=== PATIENT | male | born 1990 | race African-American/Black ===

== ENCOUNTER 2017-09-07 09:59 | Emergency (ER) | payer OTHER ==
[~2017-09-07] VITALS: Ht 175.3 cm; Wt 86.0 kg
[2017-09-07 10:00] VITALS: BP 137/82; PULSE 101; RESP 20; TEMP 98.1; O2SAT 99
[2017-09-07] MEDS ORDERED: ORPHENADRINE INJ 60 MG/2 ML AMP IM ONE (11:15)
[2017-09-07] MEDS ORDERED: KETOROLAC TROMETHAMINE 60 MG/2 ML (IM) VIAL IM ONE (11:15)
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
[2017-09-07] MEDS ORDERED: IBUP1TAB7 PO (12:23)
== END 2017-09-07 12:50 | disposition home or self-care (01) ==
LOC: NEPK 09:59
DX: S16.1XXA Strain of muscle, fascia and tendon at neck level, initial encounter (principal); S80.02XA Contusion of left knee, initial encounter; V89.2XXA Person injured in unspecified motor-vehicle accident, traffic, initial encounter
CPT/HCPCS: 73564; 96372; 99284; J1885; J2360; L0150

== ENCOUNTER 2017-10-16 09:21 | Emergency (ER) | payer SELFPAY ==
[~2017-10-16] VITALS: Ht 175.3 cm; Wt 85.0 kg
[~2017-10-16 09:21] MED LIST: IBUP1TAB7 PO
[2017-10-16 09:32] VITALS: RESP 16; TEMP 96.7; O2SAT 100
[2017-10-16] MEDS ORDERED: SODIUM CHLOR 0.9% 1000 ML INJ 1,000 ML IV ONE ×2 (09:38→10:08)
[2017-10-16] MEDS ORDERED: SODIUM CHLORIDE 0.9% FLUSH 10 ML FLUSH IVF PRN (09:45)
--- NOTE | 2017-10-16 10:04 | RADRPT ---
EXAM DATE/TIME: 10/16/2017 09:48 [facility] COMPARISON: No previous studies available for comparison. INDICATIONS : Vomiting. MEDICAL HISTORY : None. SURGICAL HISTORY : None. ENCOUNTER: Initial ACUITY: 1 day PAIN SCORE: 0/10 LOCATION: Bilateral chest FINDINGS: A single view of the chest demonstrates the lungs to be symmetrically aerated without evidence of mas s, infiltrate or effusion. The cardiomediastinal contours are unremarkable. Osseous structures are intact. There is no evidence of free air or. CONCLUSION: No acute disease. No evidence of free air. Ned Brewer MD on October 16, 2017 at 10:02 Board Certified Radiologist. This report was verified electronically.
[2017-10-16] MEDS ORDERED: ONDANSETRON HCL 4 MG/2 ML VIAL IVP ONE (10:15)
--- NOTE | 2017-10-16 10:17 | PD ---
HPI Chief Complaint: Diabetic Time Seen by Provider: 09:37 Travel History International Travel<30 days: No Contact w/Intl Traveler<30days: No Traveled to known affect area: No History of Present Illness HPI Patient woke up today with nausea vomiting and diarrhea along with abdominal crampy pain, usually only with a diarrhea movement. Patient has no other sick contacts that he knows of. Worsened by any eating or drinking. No alleviating factors. Denies any associated factors such as fever, headache, chest pain, back pain, flank pain, rash. Allergy to cefaclor Past medical history significant for diabetes type 2, cannabis use, eyeglasses PFSH Past Medical History Diabetes: Yes Patient Takes Glucophage: No Diminished Hearing: No Integumentary: Yes (ABSCESS L BUTTOCK I&D) Tetanus Vaccination: < 5 Years Influenza Vaccination: No Social History Alcohol Use: No Tobacco Use: No Substance Use: Yes (cannabis) Allergies-Medications (Allergen,Severity, Reaction): Coded Allergies: cefaclor (Verified Allergy, Unknown, UNKNOWN , 10/16/17) Reported Meds & Prescriptions Reported Meds & Active Scripts Active No Active Prescriptions or Reported Medications Review of Systems General / Constitutional: No: Fever Eyes: No: Visual changes HENT: No: Headaches Cardiovascular: No: Chest Pain or Discomfort Respiratory: No: Shortness of Breath Gastrointestinal: Positive: Nausea, Vomiting, Diarrhea Genitourinary: No: Dysuria Musculoskeletal: No: Pain Skin: No Rash Neurologic: No: Weakness Psychiatric: No: Depression Endocrine: No: Polydipsia Hematologic/Lymphatic: No: Easy Bruising Physical Exam Narrative GENERAL: SKIN: Warm and dry. HEAD: Atraumatic. Normocephalic. EYES: Pupils equal and round. No scleral icterus. No injection or drainage. ENT: No nasal bleeding or discharge. Mucous membranes pink and moist. NECK: Trachea midline. No JVD. CARDIOVASCULAR: Regular rate and rhythm. RESPIRATORY: No accessory muscle use. Clear to auscultation. Breath sounds equal bilaterally. GASTROINTESTINAL: Abdomen soft, non-tender, nondistended. MUSCULOSKELETAL: Extremities without clubbing, cyanosis, or edema. No obvious deformities. NEUROLOGICAL: Awake and alert. No obvious cranial nerve deficits. Motor grossly within normal limits. Five out of 5 muscle strength in the arms and legs. Normal speech. PSYCHIATRIC: Appropriate mood and affect; insight and judgment normal. Data Data Last Documented VS Vital Signs Date Time Temp Pulse Resp B/P (MAP) Pulse Ox O2 Delivery O2 Flow Rate FiO2 10/16/17 10:40 16 10/16/17 09:55 Room Air 10/16/17 09:32 96.7 100 Orders Orders Electrocardiogram (10/16/17 09:38) Complete Blood Count With Diff (10/16/17 09:38) Comprehensive Metabolic Panel (10/16/17 09:38) Beta Hydroxybutyrate (Acetone) (10/16/17 09:38) Osmolality,Serum (10/16/17 09:38) Lactic Acid (10/16/17 09:38) Urinalysis - C+S If Indicated (10/16/17 09:38) Chest, Single Ap (10/16/17 09:38) Arterial Blood Gas (Abg) (10/16/17 09:38) Blood Glucose (10/16/17 09:38) Blood Glucose (10/16/17 10:08) Ecg Monitoring (10/16/17 09:38) Iv Access Insert/Monitor (10/16/17 09:38) Oximetry (10/16/17 09:38) NPO (10/16/17 09:38) Sodium Chlor 0.9% 1000 Ml Inj (Ns 1000 M (10/16/17 09:38) Sodium Chlor 0.9% 1000 Ml Inj (Ns 1000 M (10/16/17 10:08) Sodium Chloride 0.9% Flush (Ns Flush) (10/16/17 09:45) Troponin I (10/16/17 09:38) Lipase (10/16/17 09:38) Ondansetron Inj (Zofran Inj) (10/16/17 10:15) Morphine Inj (Morphine Inj) (10/16/17 10:30) Labs Laboratory Tests Test 10/16/17 09:35 10/16/17 09:55 10/16/17 12:05 White Blood Count 9.9 TH/MM3 Red Blood Count 5.28 MIL/MM3 Hemoglobin 14.7 GM/DL Hematocrit 43.9 % Mean Corpuscular Volume 83.3 FL Mean Corpuscular Hemoglobin 27.8 PG Mean Corpuscular Hemoglobin Concent 33.4 % Red Cell Distribution Width 15.4 % Platelet Count 410 TH/MM3 Mean Platelet Volume 7.4 FL Neutrophils (%) (Auto) 80.3 % Lymphocytes (%) (Auto) 15.8 % Monocytes (%) (Auto) 2.8 % Eosinophils (%) (Auto) 0.4 % Basophils (%) (Auto) 0.7 % Neutrophils # (Auto) 7.9 TH/MM3 Lymphocytes # (Auto) 1.6 TH/MM3 Monocytes # (Auto) 0.3 TH/MM3 Eosinophils # (Auto) 0.0 TH/MM3 Basophils # (Auto) 0.1 TH/MM3 CBC Comment DIFF FINAL Differential Comment Blood Urea Nitrogen 6 MG/DL Creatinine 0.88 MG/DL Random Glucose 327 MG/DL Total Protein 8.6 GM/DL Albumin 4.0 GM/DL Calcium Level 9.2 MG/DL Alkaline Phosphatase 87 U/L Aspartate Amino Transf (AST/SGOT) 17 U/L Alanine Aminotransferase (ALT/SGPT) 23 U/L Total Bilirubin 0.4 MG/DL Sodium Level 137 MEQ/L Potassium Level 4.5 MEQ/L Chloride Level 102 MEQ/L Carbon Dioxide Level 25.8 MEQ/L Anion Gap 9 MEQ/L Estimat Glomerular Filtration Rate 129 ML/MIN Serum Osmolality 302 MOSM/KG Lactic Acid Level 2.7 mmol/L Troponin I LESS THAN 0.02 NG/ML Lipase 76 U/L B-Hydroxybutyrate 0.50 MMOL/L Blood Gas Puncture Site RT RADIAL Blood Gas Patient Temperature 98.6 Blood Gas HCO3 24 mmol/L Blood Gas Base Excess -0.4 mmol/L Blood Gas Oxygen Saturation 94 % Arterial Blood pH 7.36 Arterial Blood Partial Pressure CO2 44 mmHg Arterial Blood Partial Pressure O2 87 mmHG Arterial Blood Oxygen Content 18.8 Vol % Arterial Blood Carboxyhemoglobin 1.8 % Arterial Blood Methemoglobin 0.7 % Blood Gas Hemoglobin 14.1 G/DL Oxygen Delivery Device ROOM AIR Blood Gas Inspired Oxygen 21 % Urine Color YELLOW Urine Turbidity CLEAR Urine pH 5.5 Urine Specific [place] 1.041 Urine Protein NEG mg/dL Urine Glucose (UA) 1000 mg/dL Urine Ketones 40 mg/dL Urine Occult Blood NEG Urine Nitrite NEG Urine Bilirubin NEG Urine Urobilinogen LESS THAN 2.0 MG/DL Urine Leukocyte Esterase NEG Urine RBC LESS THAN 1 /hpf Urine WBC 1 /hpf Microscopic Urinalysis Comment CULT NOT INDICATED MDM Medical Decision Making Medical Screen Exam Complete: Yes Emergency Medical Condition: Yes Medical Record Reviewed: Yes Differential Diagnosis Viral gastroenteritis versus bacterial gastroenteritis versus DKA versus electrolyte imbalance versus pancreatitis Narrative Course CBC shows no leukocytosis, no anemia, normal platelet count, and no left shift. ABG shows normal pH normal PCO2 normal PaO2 no abnormal findings done on room air Currently cardiac enzymes are negative, lactic acid is 2.7, liver functions are within normal limits Mild elevation of beta hydroxybutyrate, hyperglycemia of 302, but without any acidosis or anion gap Chest x-ray read as no acute disease no evidence of free air by radiologist UA has glucosuria but without any evidence of UTI Diagnosis Primary Impression: Gastroenteritis Additional Impression: Hyperglycemia secondary to diabetes Patient Instructions: Gastroenteritis (ED), General Instructions Scripts Tramadol (Ultram) 50 Mg Tab 50 MG PO Q8H Y for PAIN, #14 TAB 0 Refills Prov: González Gambino MD 10/16/17 Ondansetron Odt (Zofran Odt) 4 Mg Tab 4 MG SL Q8HR Y for Nausea/Vomiting, #21 TAB 0 Refills Prov: González Gambino MD 10/16/17 Disposition: 01 DISCHARGE HOME Condition: Stable González Gambino MD Oct 16, 2017 10:17
[2017-10-16 10:18] LABS: AUTOMATED NEUTROPHIL # 7.9 TH/MM3 (1.8-7.7); BASOPHIL # 0.1 TH/MM3 (0-0.2); BASOPHIL % 0.7 % (0.0-2.0); EOSINOPHIL % 0.4 % (0.0-4.0); HEMATOCRIT 43.9 % (39.0-51.0); HEMOGLOBIN 14.7 GM/DL (13.0-17.0); LYMPH % 15.8 % (9.0-44.0); LYMPHOCYTE # 1.6 TH/MM3 (1.0-4.8); MEAN CELL VOLUME 83.3 FL (80.0-100.0); MEAN CORPUSCULAR HEMOGLOBIN 27.8 PG (27.0-34.0); MEAN CORPUSCULAR HGB CONC 33.4 % (32.0-36.0); MEAN PLATELET VOLUME 7.4 FL (7.0-11.0); MONO % 2.8 % (0.0-8.0); MONOCYTE # 0.3 TH/MM3 (0-0.9); NEUT % 80.3 % (16.0-70.0); PLATELET COUNT 410 TH/MM3 (150-450); RED BLOOD COUNT 5.28 MIL/MM3 (4.50-5.90); RED CELL DISTRIBUTION WIDTH 15.4 % (11.6-17.2); WHITE BLOOD COUNT 9.9 TH/MM3 (4.0-11.0)
[2017-10-16] MEDS ORDERED: MORPHINE SULFATE 4 MG/ML INJ IV PUSH ONE (10:30)
[2017-10-16 10:40] VITALS: RESP 16
[2017-10-16 10:48] LABS: ALT (GPT) 23 U/L (12-78)
[2017-10-16 10:51] LABS: ALKALINE PHOSPHATASE 87 U/L (45-117); TOTAL BILIRUBIN ADULT 0.4 MG/DL (0.2-1.0); TOTAL PROTEIN 8.6 GM/DL (6.4-8.2); TROPONIN I LESS THAN 0.02 NG/ML (0.02-0.05)
[2017-10-16 11:04] LABS: AST (GOT) 17 U/L (15-37); BICARBONATE 25.8 MEQ/L (21.0-32.0); BLOOD UREA NITROGEN 6 MG/DL (7-18); CALCIUM 9.2 MG/DL (8.5-10.1); CHLORIDE 102 MEQ/L (98-107); CREATININE 0.88 MG/DL (0.60-1.30); GLOMERULAR FILTRATION RATE 129 ML/MIN (>89); GLUCOSE,RANDOM 327 MG/DL (74-106); SODIUM (NA) 137 MEQ/L (136-145)
[2017-10-16 12:20] LABS: BILIRUBIN, URINE NEG (NEG); BLOOD, URINE NEG (NEG); GLUCOSE,URINE 1000 mg/dL (NEG); KETONE, URINE 40 mg/dL (NEG); NITRITE,URINE NEG (NEG); PH, URINE 5.5 (5.0-8.5); URINE COLOR YELLOW (YELLW/STRAW); URINE LEUKOCYTE ESTERASE NEG (NEG)
[2017-10-16] MEDS ORDERED: TRAM50 PO (12:41)
[2017-10-16] MEDS ORDERED: ZOFR4TAB3 SL (12:41)
[2017-10-16 13:29] VITALS: BP 125/85
[2017-10-16] MEDS ORDERED: ONDANSETRON HCL 4 MG/2 ML VIAL IV PUSH ONE (13:45)
--- NOTE | 2017-10-16 13:56 | EKG ---
Date Performed: 10/16/2017 Time Performed: 10:04:55 PTAGE: 26 years EKG: Sinus rhythm POSSIBLE RIGHT VENTRICULAR CONDUCTION DELAY NONSPECIFIC T-WAVE ABNORMALITY BORDERLINE ECG NO PREVIOUS TRACING DOCTOR: Boogie Yee Interpretating Date/Time 10/16/2017 13:53:41
== END 2017-10-16 14:00 | disposition home or self-care (01) ==
LOC: NEPE 09:21
DX: K52.9 Noninfective gastroenteritis and colitis, unspecified (principal); E11.65 Type 2 diabetes mellitus with hyperglycemia; F12.90 Cannabis use, unspecified, uncomplicated
CPT/HCPCS: 36600; 71045; 80053; 81001; 82010; 82805; 83605; 83690; 83930; 84484; 85025; 93005; 96361; 96374; 96375; 96376; 99285; J2270; J2405; J7030

== ENCOUNTER 2017-10-18 08:45 | Emergency (ER) | payer SELFPAY ==
[~2017-10-18] VITALS: Ht 175.3 cm; Wt 90.0 kg
[~2017-10-18 08:45] MED LIST changes: -IBUP1TAB7 PO; +TRAM50 PO; +ZOFR4TAB3 SL
[2017-10-18 08:49] VITALS: BP 141/88; PULSE 86; RESP 16; TEMP 98.1; O2SAT 100
[2017-10-18] MEDS ORDERED: SODIUM CHLOR 0.9% 1000 ML INJ 1,000 ML IV ONE ×2 (09:15→12:15)
--- NOTE | 2017-10-18 10:07 | PD ---
HPI Chief Complaint: General Weakness Time Seen by Provider: 09:03 Travel History International Travel<30 days: No Contact w/Intl Traveler<30days: No Traveled to known affect area: No History of Present Illness HPI Patient is a 26 year old male who comes in feeling fatigued. He was here a couple of days ago with nausea/vomiting/diarrhea, but says this has improved. Now he says he feels weak all over and has pain in his joints. He denies fever or chills. He says he had some discomfort in his LLQ, but this improved with a bowel movement. He denies chest pain or SOB. He is a diabetic, but was trying to manage it with diet. Severity is mild to moderate. PFSH Past Medical History Medical History: Denies Significant Hx Diabetes: Yes Patient Takes Glucophage: No Diminished Hearing: No Integumentary: Yes (ABSCESS L BUTTOCK I&D) Tetanus Vaccination: Unknown Influenza Vaccination: No Past Surgical History Surgical History: No Previous Surgery Social History Alcohol Use: No Tobacco Use: No Substance Use: Yes (cannabis) Allergies-Medications (Allergen,Severity, Reaction): Coded Allergies: cefaclor (Verified Allergy, Unknown, UNKNOWN , 10/18/17) Reported Meds & Prescriptions Reported Meds & Active Scripts Active Ultram (Tramadol HCl) 50 Mg Tab 50 Mg PO Q8H PRN Zofran Odt (Ondansetron Odt) 4 Mg Tab 4 Mg SL Q8HR PRN Review of Systems Except as stated in HPI: all other systems reviewed are Neg General / Constitutional: No: Fever, Chills HENT: No: Headaches, Lightheadedness Cardiovascular: No: Chest Pain or Discomfort Respiratory: No: Shortness of Breath Gastrointestinal: No: Vomiting, Abdominal Pain Genitourinary: No: Dysuria Musculoskeletal: Positive: Arthralgias Neurologic: Positive: Weakness Physical Exam Narrative GENERAL: Awake and alert, in no acute distress. SKIN: Focused skin assessment warm/dry. HEAD: Atraumatic. Normocephalic. EYES: Pupils equal and round. No scleral icterus. EOMI ENT: Mucous membranes pink and moist. NECK: Trachea midline. No JVD. CARDIOVASCULAR: Regular rate and rhythm. No murmur appreciated. RESPIRATORY: No accessory muscle use. Clear to auscultation. Breath sounds equal bilaterally. GASTROINTESTINAL: Abdomen soft, non-tender, nondistended. MUSCULOSKELETAL: No obvious deformities. No clubbing. No cyanosis. No edema. NEUROLOGICAL: Awake and alert. No obvious cranial nerve deficits. Motor grossly within normal limits. Normal speech. PSYCHIATRIC: Appropriate mood and affect; insight and judgment normal. Data Data Last Documented VS Vital Signs Date Time Temp Pulse Resp B/P (MAP) Pulse Ox O2 Delivery O2 Flow Rate FiO2 10/18/17 12:49 65 18 138/80 (99) 99 10/18/17 08:49 98.1 Orders Orders Iv Access Insert/Monitor (10/18/17 09:08) Complete Blood Count With Diff (10/18/17 09:08) Basic Metabolic Panel (Bmp) (10/18/17 09:08) Hepatic Functional Panel (10/18/17 09:08) Urinalysis - C+S If Indicated (10/18/17 09:08) Beta Hydroxybutyrate (Acetone) (10/18/17 09:08) Sodium Chlor 0.9% 1000 Ml Inj (Ns 1000 M (10/18/17 09:15) Electrocardiogram (10/18/17 ) Sodium Chlor 0.9% 1000 Ml Inj (Ns 1000 M (10/18/17 12:15) Ketorolac Inj (Toradol Inj) (10/18/17 12:15) Creatine Kinase (Cpk) (10/18/17 12:13) Ondansetron Inj (Zofran Inj) (10/18/17 12:30) Ed Discharge Order (10/18/17 13:24) Labs Laboratory Tests Test 10/18/17 09:30 10/18/17 09:37 10/18/17 10:45 White Blood Count 7.0 TH/MM3 Red Blood Count 5.13 MIL/MM3 Hemoglobin 14.3 GM/DL Hematocrit 42.0 % Mean Corpuscular Volume 81.9 FL Mean Corpuscular Hemoglobin 27.8 PG Mean Corpuscular Hemoglobin Concent 34.0 % Red Cell Distribution Width 15.5 % Platelet Count 409 TH/MM3 Mean Platelet Volume 8.0 FL Neutrophils (%) (Auto) 81.0 % Lymphocytes (%) (Auto) 15.4 % Monocytes (%) (Auto) 2.8 % Eosinophils (%) (Auto) 0.2 % Basophils (%) (Auto) 0.6 % Neutrophils # (Auto) 5.7 TH/MM3 Lymphocytes # (Auto) 1.1 TH/MM3 Monocytes # (Auto) 0.2 TH/MM3 Eosinophils # (Auto) 0.0 TH/MM3 Basophils # (Auto) 0.0 TH/MM3 CBC Comment DIFF FINAL Differential Comment Urine Color YELLOW Urine Turbidity CLEAR Urine pH 5.5 Urine Specific [place] 1.030 Urine Protein NEG mg/dL Urine Glucose (UA) 1000 mg/dL Urine Ketones 40 mg/dL Urine Occult Blood NEG Urine Nitrite NEG Urine Bilirubin NEG Urine Urobilinogen LESS THAN 2.0 MG/DL Urine Leukocyte Esterase NEG Urine WBC LESS THAN 1 /hpf Microscopic Urinalysis Comment CULT NOT INDICATED Blood Urea Nitrogen 5 MG/DL Creatinine 0.73 MG/DL Random Glucose 232 MG/DL Total Protein 8.2 GM/DL Albumin 3.8 GM/DL Calcium Level 8.9 MG/DL Alkaline Phosphatase 71 U/L Aspartate Amino Transf (AST/SGOT) 13 U/L Alanine Aminotransferase (ALT/SGPT) 20 U/L Total Bilirubin 0.6 MG/DL Direct Bilirubin 0.1 MG/DL Sodium Level 139 MEQ/L Potassium Level 3.7 MEQ/L Chloride Level 106 MEQ/L Carbon Dioxide Level 25.5 MEQ/L Anion Gap 8 MEQ/L Estimat Glomerular Filtration Rate 160 ML/MIN Indirect Bilirubin 0.5 MG/DL Total Creatine Kinase 90 U/L B-Hydroxybutyrate 1.20 MMOL/L [facility] Medical Decision Making Medical Screen Exam Complete: Yes Emergency Medical Condition: Yes Medical Record Reviewed: Yes Interpretation(s) ECG shows NSR at 65, no ST elevation or depression, normal intervals Differential Diagnosis Viral infection versus hyperglycemia versus dehydration versus electrolyte abnormality Narrative Course Patient is a 26-year-old male comes in complaining of generalized weakness and joint pain. Exam shows no acute abnormalities. IV established, labs sent. Labs show a glucose of 232. Anion gap is 8. Electrolytes are within normal limits. Patient given IV fluids, Toradol, Zofran. He reports feeling better. Patient does say that he recently cut out meat from his diet and is only eating fruits and vegetables. I explained he needs to add protein in his diet. Advised to drink plenty of water and follow-up with a primary care doctor for management of his diabetes. Advised return to the ED as needed for any worsening symptoms. Diagnosis Primary Impression: Generalized weakness Referrals: [facility] call for appointment Patient Instructions: General Instructions, Weakness (ED) Additional Instructions: Drink plenty of water. Follow-up with a primary care doctor. Return to the ED as needed for any worsening symptoms. Disposition: 01 DISCHARGE HOME Condition: Stable Meka Magaña MD Oct 18, 2017 10:07
[2017-10-18 10:10] LABS: BILIRUBIN, URINE NEG (NEG); BLOOD, URINE NEG (NEG); GLUCOSE,URINE 1000 mg/dL (NEG); KETONE, URINE 40 mg/dL (NEG); NITRITE,URINE NEG (NEG); PH, URINE 5.5 (5.0-8.5); URINE COLOR YELLOW (YELLW/STRAW); URINE LEUKOCYTE ESTERASE NEG (NEG)
[2017-10-18 10:21] LABS: AUTOMATED NEUTROPHIL # 5.7 TH/MM3 (1.8-7.7); BASOPHIL % 0.6 % (0.0-2.0); EOSINOPHIL % 0.2 % (0.0-4.0); HEMOGLOBIN 14.3 GM/DL (13.0-17.0); LYMPH % 15.4 % (9.0-44.0); LYMPHOCYTE # 1.1 TH/MM3 (1.0-4.8); MEAN CELL VOLUME 81.9 FL (80.0-100.0); MEAN CORPUSCULAR HEMOGLOBIN 27.8 PG (27.0-34.0); MONO % 2.8 % (0.0-8.0); MONOCYTE # 0.2 TH/MM3 (0-0.9); PLATELET COUNT 409 TH/MM3 (150-450); RED BLOOD COUNT 5.13 MIL/MM3 (4.50-5.90); RED CELL DISTRIBUTION WIDTH 15.5 % (11.6-17.2)
[2017-10-18 12:02] LABS: ALBUMIN 3.8 GM/DL (3.4-5.0); BICARBONATE 25.5 MEQ/L (21.0-32.0); CALCIUM 8.9 MG/DL (8.5-10.1); CREATININE 0.73 MG/DL (0.60-1.30); DIRECT BILIRUBIN ADULT 0.1 MG/DL (0.0-0.2); INDIRECT BILIRUBIN 0.5 MG/DL (0.0-0.8); TOTAL BILIRUBIN ADULT 0.6 MG/DL (0.2-1.0); TOTAL PROTEIN 8.2 GM/DL (6.4-8.2)
[2017-10-18] MEDS ORDERED: KETOROLAC TROMETHAMINE 30 MG/ML (IVP) VIAL IV PUSH ONE (12:15)
[2017-10-18] MEDS ORDERED: ONDANSETRON HCL 4 MG/2 ML VIAL IV PUSH ONE (12:30)
[2017-10-18 12:49] VITALS: BP 138/80; PULSE 65; RESP 18; O2SAT 99
[2017-10-18 14:43] VITALS: BP 153/84
--- NOTE | 2017-10-19 16:37 | EKG ---
Date Performed: 10/18/2017 Time Performed: 09:41:32 PTAGE: 26 years EKG: Sinus rhythm NONSPECIFIC T-WAVE ABNORMALITY Since previous tracing, no significant change noted BORDERLINE ECG PREVIOUS TRACING : 10/16/2017 10.04 DOCTOR: Everette Kaba Interpretating Date/Time 10/19/2017 16:36:25
== END 2017-10-18 14:56 | disposition home or self-care (01) ==
LOC: NEPD 08:45
DX: R53.1 Weakness (principal); F12.90 Cannabis use, unspecified, uncomplicated
CPT/HCPCS: 80048; 80076; 81001; 82010; 82550; 85025; 93005; 96361; 96374; 99284; J1885; J2405; J7030

== ENCOUNTER 2017-10-22 07:32 | Emergency (ER) | payer SELFPAY ==
[~2017-10-22] VITALS: Ht 175.3 cm; Wt 90.0 kg
[2017-10-22 07:36] VITALS: BP 139/76; PULSE 81; RESP 16; TEMP 98; O2SAT 100
[2017-10-22] MEDS ORDERED: SODIUM CHLOR 0.9% 1000 ML INJ 1,000 ML IV ONE ×2 (07:53→09:45)
[2017-10-22] MEDS ORDERED: SODIUM CHLORIDE 0.9% FLUSH 10 ML FLUSH IVF PRN (08:00)
--- NOTE | 2017-10-22 08:04 | PD ---
HPI Chief Complaint: General Weakness Time Seen by Provider: 08:00 Travel History International Travel<30 days: No Contact w/Intl Traveler<30days: No Traveled to known affect area: No History of Present Illness HPI 26-year-old male patient with history of diabetes not currently on any diabetes treatment, migraine headaches, presents to the ER today for feeling weak, nausea , vomiting, and headache. He states that he has been seen in the last few days for similar issues, but states that it has not gone away. He has had episodes of diarrhea as well but he denies any abdominal pain, fevers, coughing, or any other symptoms. Modifying Factors: None Associated Signs & Symptoms: Nausea, vomiting, diarrhea, headaches, feeling weak Risk Factors: Diabetic, noncompliant with taking medications PFSH Past Medical History Diabetes: Yes Diminished Hearing: No Integumentary: Yes (ABSCESS L BUTTOCK I&D) Social History Alcohol Use: No Tobacco Use: No Substance Use: Yes (cannabis) Allergies-Medications (Allergen,Severity, Reaction): Coded Allergies: cefaclor (Verified Allergy, Unknown, UNKNOWN , 10/22/17) Reported Meds & Prescriptions Reported Meds & Active Scripts Active Ultram (Tramadol HCl) 50 Mg Tab 50 Mg PO Q8H PRN Zofran Odt (Ondansetron Odt) 4 Mg Tab 4 Mg SL Q8HR PRN Review of Systems Except as stated in HPI: all other systems reviewed are Neg Physical Exam Narrative GENERAL: Well-developed young -[place] male patient currently and mild distress. Awake and oriented 3. SKIN: Focused skin assessment warm/dry. HEAD: Atraumatic. Normocephalic. EYES: Pupils equal and round. No scleral icterus. No injection or drainage. ENT: No nasal bleeding or discharge. Mucous membranes pink and moist. NECK: Trachea midline. No JVD. Supple. CARDIOVASCULAR: Regular rate and rhythm. No murmur appreciated. RESPIRATORY: No accessory muscle use. Clear to auscultation. Breath sounds equal bilaterally. GASTROINTESTINAL: Abdomen soft, non-tender, nondistended. Hepatic and splenic margins not palpable. MUSCULOSKELETAL: No obvious deformities. No clubbing. No cyanosis. No edema. NEUROLOGICAL: Awake and alert. No obvious cranial nerve deficits. Motor grossly within normal limits. Normal speech. PSYCHIATRIC: Appropriate mood and affect; insight and judgment normal. Data Data Last Documented VS Vital Signs Date Time Temp Pulse Resp B/P (MAP) Pulse Ox O2 Delivery O2 Flow Rate FiO2 10/22/17 10:00 77 16 121/71 (88) 100 10/22/17 07:40 Room Air 10/22/17 07:36 98.0 Orders Orders Complete Blood Count With Diff (10/22/17 07:53) Comprehensive Metabolic Panel (10/22/17 07:53) Beta Hydroxybutyrate (Acetone) (10/22/17 07:53) Urinalysis - C+S If Indicated (10/22/17 07:53) Ecg Monitoring (10/22/17 07:53) Iv Access Insert/Monitor (10/22/17 07:53) Oximetry (10/22/17 07:53) NPO (10/22/17 07:53) Sodium Chlor 0.9% 1000 Ml Inj (Ns 1000 M (10/22/17 07:53) Sodium Chloride 0.9% Flush (Ns Flush) (10/22/17 08:00) Lipase (10/22/17 07:53) Metoclopramide Inj (Reglan Inj) (10/22/17 08:15) Diphenhydramine Inj (Benadryl Inj) (10/22/17 08:15) Acetaminophen (Tylenol) (10/22/17 08:15) Sodium Chlor 0.9% 1000 Ml Inj (Ns 1000 M (10/22/17 09:45) Ct Brain W/O Iv Contrast(Rout) (10/22/17 09:45) Ed Discharge Order (10/22/17 11:16) Insulin Human Regular Inj (Novolin R Inj (10/22/17 11:30) Labs Laboratory Tests Test 10/22/17 08:10 10/22/17 08:18 White Blood Count 4.6 TH/MM3 Red Blood Count 4.85 MIL/MM3 Hemoglobin 13.6 GM/DL Hematocrit 39.5 % Mean Corpuscular Volume 81.4 FL Mean Corpuscular Hemoglobin 28.1 PG Mean Corpuscular Hemoglobin Concent 34.5 % Red Cell Distribution Width 15.3 % Platelet Count 365 TH/MM3 Mean Platelet Volume 7.8 FL Neutrophils (%) (Auto) 61.5 % Lymphocytes (%) (Auto) 31.6 % Monocytes (%) (Auto) 5.0 % Eosinophils (%) (Auto) 0.9 % Basophils (%) (Auto) 1.0 % Neutrophils # (Auto) 2.8 TH/MM3 Lymphocytes # (Auto) 1.5 TH/MM3 Monocytes # (Auto) 0.2 TH/MM3 Eosinophils # (Auto) 0.0 TH/MM3 Basophils # (Auto) 0.0 TH/MM3 CBC Comment DIFF FINAL Differential Comment Blood Urea Nitrogen 10 MG/DL Creatinine 0.72 MG/DL Random Glucose 165 MG/DL Total Protein 8.1 GM/DL Albumin 3.9 GM/DL Calcium Level 9.1 MG/DL Alkaline Phosphatase 64 U/L Aspartate Amino Transf (AST/SGOT) 28 U/L Alanine Aminotransferase (ALT/SGPT) 22 U/L Total Bilirubin 0.8 MG/DL Sodium Level 138 MEQ/L Potassium Level 3.8 MEQ/L Chloride Level 103 MEQ/L Carbon Dioxide Level 25.3 MEQ/L Anion Gap 10 MEQ/L Estimat Glomerular Filtration Rate 163 ML/MIN Lipase 62 U/L B-Hydroxybutyrate 1.51 MMOL/L Urine Color YELLOW Urine Turbidity CLEAR Urine pH 5.5 Urine Specific [place] 1.017 Urine Protein TRACE mg/dL Urine Glucose (UA) 300 mg/dL Urine Ketones 40 mg/dL Urine Occult Blood NEG Urine Nitrite NEG Urine Bilirubin NEG Urine Urobilinogen LESS THAN 2.0 MG/DL Urine Leukocyte Esterase NEG Urine RBC LESS THAN 1 /hpf Urine WBC 2 /hpf Urine Bacteria RARE /hpf Urine Hyaline Casts 2 /lpf Urine Mucus MANY /lpf Microscopic Urinalysis Comment CULT NOT INDICATED MDM Medical Decision Making Medical Screen Exam Complete: Yes Emergency Medical Condition: Yes Medical Record Reviewed: Yes Interpretation(s) Laboratory Tests Test 10/22/17 08:10 10/22/17 08:18 Random Glucose 165 MG/DL (74-106) Lipase 62 U/L (73-393) B-Hydroxybutyrate 1.51 MMOL/L (0.00-0.39) Urine Glucose (UA) 300 mg/dL (NEG) Urine Ketones 40 mg/dL (NEG) Urine Bacteria RARE /hpf (NONE) Urine Mucus MANY /lpf (OCC) Last [address] 10/22/17 0935 Signed Impressions: Service Date/Time: Sunday, October 22, 2017 09:59 - CONCLUSION: 1. Negative noncontrast CT brain. Jamarcus Muhammad MD Differential Diagnosis Nausea, vomiting, headaches, feeling weak: DKA versus dehydration versus electrolyte abnormalities versus viral syndrome versus migraine headaches Narrative Course Patient has had several days now of headaches, has been here multiple times in the ER, CAT scan was done which did not show any signs of acute intracranial processes. Lab work shows elevated ketones, and considering the history, I suspect an underlying dehydration. Patient has normal anion gap, blood sugar is only 170, and at this point, I am not suspecting that this is a DKA. He was given several IV fluid boluses, Tylenol, Reglan, and was given a small dose of IV insulin as well. Considering the story and ongoing headaches, I have discussed doing a lumbar puncture with the patient to rule out other acute processes not identified with lab work and CAT scan, but the patient is declining at this time stating that he does not want anything stuck between his spine. I have explained the fact that I would not be able to rule out possible other acute processes that can kill him such as meningitis or bleeding which is subacute, patient states that he does not want anything else done at this point. My plan would be to release him with further symptomatic relief for nausea and vomiting and headaches. We will have him follow-up closely with primary care doctor. He has been told that he needs to get better control of his diabetes and probably does need to be on medication for diabetes, he states understanding. He should return for any worsening in symptoms. Diagnosis Primary Impression: Hyperglycemia Additional Impression: Headache Referrals: [facility] Med/Other Pt SpecificInfo: Prescription(s) given Scripts Metoclopramide (Reglan) 10 Mg Tab 10 MG PO QID Y for NAUSEA OR VOMITING, #12 TAB 0 Refills Prov: Sushila Lee MD 10/22/17 Insulin Human NPH Inj (Novolin N Inj) 1,000 Unit/10 Ml Vial 0 SQ DIRECTED for Blood Sugar Management, #10 ML 0 Refills Sliding Scale As Directed. Prov: Sushila Lee MD 10/22/17 Disposition: 01 DISCHARGE HOME Condition: Stable Sushila Lee MD Oct 22, 2017 08:04
[2017-10-22] MEDS ORDERED: ACETAMINOPHEN 325 MG TAB PO ONE (08:15)
[2017-10-22] MEDS ORDERED: METOCLOPRAMIDE HCL 10 MG/2 ML VIAL IV PUSH ONE (08:15)
[2017-10-22] MEDS ORDERED: diphenhydrAMINE HCL 50 MG/ML VIAL IV PUSH ONE (08:15)
[2017-10-22 08:52] LABS: AUTOMATED NEUTROPHIL # 2.8 TH/MM3 (1.8-7.7); EOSINOPHIL % 0.9 % (0.0-4.0); HEMATOCRIT 39.5 % (39.0-51.0); HEMOGLOBIN 13.6 GM/DL (13.0-17.0); LYMPH % 31.6 % (9.0-44.0); LYMPHOCYTE # 1.5 TH/MM3 (1.0-4.8); MEAN CELL VOLUME 81.4 FL (80.0-100.0); MEAN CORPUSCULAR HEMOGLOBIN 28.1 PG (27.0-34.0); MEAN CORPUSCULAR HGB CONC 34.5 % (32.0-36.0); MEAN PLATELET VOLUME 7.8 FL (7.0-11.0); MONOCYTE # 0.2 TH/MM3 (0-0.9); NEUT % 61.5 % (16.0-70.0); PLATELET COUNT 365 TH/MM3 (150-450); RED BLOOD COUNT 4.85 MIL/MM3 (4.50-5.90); RED CELL DISTRIBUTION WIDTH 15.3 % (11.6-17.2); WHITE BLOOD COUNT 4.6 TH/MM3 (4.0-11.0)
[2017-10-22 08:55] LABS: BACTERIA, URINE RARE /hpf; BILIRUBIN, URINE NEG (NEG); BLOOD, URINE NEG (NEG); GLUCOSE,URINE 300 mg/dL (NEG); HYALINE CAST, URINE 2 /lpf (RARE); KETONE, URINE 40 mg/dL (NEG); MUCUS URINE MANY /lpf (OCC); NITRITE,URINE NEG (NEG); PH, URINE 5.5 (5.0-8.5); URINE COLOR YELLOW (YELLW/STRAW); URINE LEUKOCYTE ESTERASE NEG (NEG)
[2017-10-22 09:11] LABS: ALKALINE PHOSPHATASE 64 U/L (45-117); ALT (GPT) 22 U/L (12-78); TOTAL BILIRUBIN ADULT 0.8 MG/DL (0.2-1.0); TOTAL PROTEIN 8.1 GM/DL (6.4-8.2)
[2017-10-22 09:29] LABS: ALBUMIN 3.9 GM/DL (3.4-5.0); AST (GOT) 28 U/L (15-37); BICARBONATE 25.3 MEQ/L (21.0-32.0); BLOOD UREA NITROGEN 10 MG/DL (7-18); CALCIUM 9.1 MG/DL (8.5-10.1); CHLORIDE 103 MEQ/L (98-107); CREATININE 0.72 MG/DL (0.60-1.30); GLOMERULAR FILTRATION RATE 163 ML/MIN (>89); GLUCOSE,RANDOM 165 MG/DL (74-106); SODIUM (NA) 138 MEQ/L (136-145)
[2017-10-22 10:00] VITALS: BP 121/71; PULSE 77; RESP 16; O2SAT 100
--- NOTE | 2017-10-22 11:05 | RADRPT ---
EXAM DATE/TIME: 10/22/2017 09:59 [facility] COMPARISON: No previous studies available for comparison. INDICATIONS : Headache, weakness RADIATION DOSE: 56.35 CTDIvol (mGy) MEDICAL HISTORY : Diabetes SURGICAL HISTORY : None. ENCOUNTER: Initial ACUITY: 1 day PAIN SCALE: 6/10 LOCATION: cranial TECHNIQUE: Multiple contiguous axial images were obtained of the head. Using automated exposure control and adj ustment of the mA and/or kV according to patient size, radiation dose was kept as low as reasonably a chievable to obtain optimal diagnostic quality images. DICOM format image data is available electro nically for review and comparison. FINDINGS: CEREBRUM: The ventricles are normal for age. No evidence of midline shift, mass lesion, hemorrhage or acute in farction. No extra-axial fluid collections are seen. POSTERIOR FOSSA: The cerebellum and brainstem are intact. The 4th ventricle is midline. The cerebellopontine angle i s unremarkable. EXTRACRANIAL: The visualized portion of the orbits is intact. SKULL: The calvaria is intact. No evidence of skull fracture. CONCLUSION: 1. Negative noncontrast CT brain. Jamarcus Muhammad MD on October 22, 2017 at 11:02 Board Certified Radiologist. This report was verified electronically.
[2017-10-22] MEDS ORDERED: NOVONP2 SQ (11:22)
[2017-10-22] MEDS ORDERED: REGL10TA5 PO (11:22)
[2017-10-22] MEDS: INSULIN HUMAN REGULAR 1,000 UNITS/10 ML VIAL IV PUSH ONE ×2 (11:30→12:48)
== END 2017-10-22 14:51 | disposition home or self-care (01) ==
LOC: NEPC 07:32 → NEDAMB 14:51
DX: E11.65 Type 2 diabetes mellitus with hyperglycemia (principal); R51 Headache; R19.7 Diarrhea, unspecified; R11.2 Nausea with vomiting, unspecified; F12.90 Cannabis use, unspecified, uncomplicated
CPT/HCPCS: 70450; 80053; 81001; 82010; 83690; 85025; 96361; 96374; 96375; 99284; J1200; J1815; J2765; J7030

== ENCOUNTER 2017-11-24 06:29 | Emergency (ER) | payer SELFPAY ==
[~2017-11-24] VITALS: Ht 175.3 cm; Wt 88.0 kg
[~2017-11-24 06:29] MED LIST changes: +NOVONP2 SQ; +REGL10TA5 PO
[2017-11-24 06:40] VITALS: BP 137/79; PULSE 79; RESP 18; TEMP 97.7; O2SAT 100
--- NOTE | 2017-11-24 07:06 | PD ---
HPI Chief Complaint: Dizziness Time Seen by Provider: 07:03 Travel History International Travel<30 days: No Contact w/Intl Traveler<30days: No Traveled to known affect area: No History of Present Illness HPI Patient states that while he was in the bathroom having a bowel movement, he developed some dizziness. As a return to bed started to have a coughing fit after which he developed sharp pain to his left lower costal region. Patient comes in complaining of this chest pain, sharp, left lower costal, 6 out of 10, worse with movement, coughing and deep breathing and nonradiating. no alleviating factors. States allergy to cefaclor (develops hives close) Past medical history significant for corrective eyewear, diabetes, marijuana use. PFSH Past Medical History Diabetes: Yes Patient Takes Glucophage: Yes (11/24/2017 0430) Diminished Hearing: No Integumentary: Yes (ABSCESS L BUTTOCK I&D) Tetanus Vaccination: Unknown Influenza Vaccination: No Past Surgical History Other Surgery: Yes (I&D) Social History Alcohol Use: No Tobacco Use: No Substance Use: Yes (cannabis) Allergies-Medications (Allergen,Severity, Reaction): Coded Allergies: cefaclor (Verified Allergy, Unknown, UNKNOWN , 11/24/17) Reported Meds & Prescriptions Reported Meds & Active Scripts Active Reglan (Metoclopramide HCl) 10 Mg Tab 10 Mg PO QID PRN Novolin N Inj (Insulin Human NPH) 1,000 Unit/10 Ml Vial 0 SQ DIRECTED Sliding Scale As Directed. Ultram (Tramadol HCl) 50 Mg Tab 50 Mg PO Q8H PRN Zofran Odt (Ondansetron Odt) 4 Mg Tab 4 Mg SL Q8HR PRN Review of Systems Except as stated in HPI: all other systems reviewed are Neg General / Constitutional: No: Fever Eyes: No: Visual changes HENT: No: Headaches Cardiovascular: Positive: Chest Pain or Discomfort Respiratory: No: Shortness of Breath Gastrointestinal: No: Abdominal Pain Genitourinary: No: Dysuria Musculoskeletal: No: Pain Skin: No Rash Neurologic: No: Weakness Psychiatric: No: Depression Endocrine: No: Polydipsia Hematologic/Lymphatic: No: Easy Bruising Physical Exam Narrative GENERAL: SKIN: Warm and dry. HEAD: Atraumatic. Normocephalic. EYES: Pupils equal and round. No scleral icterus. No injection or drainage. ENT: No nasal bleeding or discharge. Mucous membranes pink and moist. NECK: Trachea midline. No JVD. CARDIOVASCULAR: Regular rate and rhythm. RESPIRATORY: No accessory muscle use. Clear to auscultation. Breath sounds equal bilaterally. Reproducible chest wall palpation of the left mid axillary eighth and ninth rib particularly intercostally GASTROINTESTINAL: Abdomen soft, non-tender, nondistended. MUSCULOSKELETAL: Extremities without clubbing, cyanosis, or edema. No obvious deformities. NEUROLOGICAL: Awake and alert. No obvious cranial nerve deficits. Motor grossly within normal limits. Five out of 5 muscle strength in the arms and legs. Normal speech. PSYCHIATRIC: Appropriate mood and affect; insight and judgment normal. Data Data Last Documented VS Vital Signs Date Time Temp Pulse Resp B/P (MAP) Pulse Ox O2 Delivery O2 Flow Rate FiO2 11/24/17 07:40 78 18 131/77 (95) 99 11/24/17 06:58 Room Air 11/24/17 06:40 97.7 Orders Orders Electrocardiogram (11/24/17 07:23) Chest, Pa & Lat (11/24/17 07:23) MDM Medical Decision Making Medical Screen Exam Complete: Yes Emergency Medical Condition: Yes Medical Record Reviewed: Yes Interpretation(s) EKG shows a normal sinus rhythm, 67 bpm, normal intervals, no evidence of any ST elevation TN pattern. Differential Diagnosis Pneumonia versus pneumothorax versus chest wall strain versus stemming Diagnosis Primary Impression: Chest wall pain Patient Instructions: Chest Wall Pain (GEN), General Instructions Scripts Baclofen (Baclofen) 20 Mg Tab 20 MG PO TID for Muscle Spasm for 4 Days, #15 TAB 0 Refills Prov: González Gambino MD 11/24/17 Tramadol (Ultram) 50 Mg Tab 50 MG PO Q6H Y for PAIN, #12 TAB 0 Refills Prov: González Gambino MD 11/24/17 Disposition: 01 DISCHARGE HOME Condition: Stable González Gambino MD November 24, 2017 07:06
[2017-11-24 07:40] VITALS: BP 131/77; PULSE 78; RESP 18; O2SAT 99
--- NOTE | 2017-11-24 08:44 | RADRPT ---
EXAM DATE/TIME: 11/24/2017 08:35 [facility] COMPARISON: No previous studies available for comparison. INDICATIONS : Left chest wall pain from coughing and vomiting. MEDICAL HISTORY : None. SURGICAL HISTORY : None. ENCOUNTER: Initial ACUITY: 1 day PAIN SCORE: 7/10 LOCATION: Right chest FINDINGS: PA and lateral views of the chest demonstrate the lungs to be symmetrically aerated without evidence of mass, infiltrate or effusion. The cardiomediastinal contours are unremarkable. Osseous structure s are intact. CONCLUSION: 1. No acute cardiopulmonary disease. Ravi Perez MD on November 24, 2017 at 8:41 Board Certified Radiologist. This report was verified electronically.
[2017-11-24] MEDS ORDERED: BACL20TA PO (09:34)
[2017-11-24] MEDS ORDERED: TRAM50 PO (09:34)
[2017-11-24 09:55] VITALS: BP 135/85
--- NOTE | 2017-11-25 19:55 | EKG ---
Date Performed: 11/24/2017 Time Performed: 07:40:52 PTAGE: 27 years EKG: Sinus rhythm NORMAL ECG Since the PREVIOUS TRACING , no significant change noted PREVIOUS TRACIN10/18/2017 09.41 DOCTOR: Fabian Wilkerson Interpretating Date/Time 11/25/2017 19:54:17
== END 2017-11-24 10:09 | disposition home or self-care (01) ==
LOC: NEPC 06:29
DX: R07.89 Other chest pain (principal); F12.90 Cannabis use, unspecified, uncomplicated; E11.9 Type 2 diabetes mellitus without complications; Z79.4 Long term (current) use of insulin
CPT/HCPCS: 71046; 93005